=== PATIENT | female | born 1950 | race Caucasian/White ===

== ENCOUNTER 2018-05-17 12:08 | Emergency (ER) | payer BC ==
[2018-05-17 12:45] VITALS: BMI 28.1
--- NOTE | 2018-05-17 13:30 | PDOC ---
History of Present Illness - General History Source: Patient Exam Limitations: No Limitations - History of Present Illness Initial Comments: 05/17/18 15:33 The patient is a 68 year old female, with a significant past medical history of hypertension, diabetes, hypothyroid (on Synthroid), fibromyalgia (taking Cymbalta), and daily protonics, who presents to the emergency department with constipation and lower abdominal cramping for about 5 days. She reportedly use of several enemas and a couple of suppositories at home without any relief. She states she has lower abdominal cramping bilaterally with prominence to her suprapubic region. The patient denies chest pain, shortness of breath, headache and dizziness. The patient denies fever, chills, nausea, vomit, diarrhea, melena, or hematochezia. The patient denies dysuria, frequency, urgency and hematuria. Allergies: codeine Past surgical history: appendectomy, cholecystectomy, total hysterectomy, tonsillectomy Social history: denies toxic habits PCP - Dr. Plascencia <Teresita Rees - Last Filed: 05/17/18 15:33> <Faisal Mccoy - Last Filed: 05/17/18 19:07> - General Chief Complaint: Constipation Stated Complaint: CONSTIPATED Time Seen by Provider: 05/17/18 13:30 Past History <Teresita Rees - Last Filed: 05/17/18 15:33> - Suicide/Smoking/Psychosocial Hx Smoking History: Former smoker Have you smoked in the past 12 months: No Information on smoking cessation initiated: No Hx Alcohol Use: No Drug/Substance Use Hx: No <Faisal Mccoy - Last Filed: 05/17/18 19:07> - Past Medical History Allergies/Adverse Reactions: Allergies Allergy/AdvReac Type Severity Reaction Status Date / Time codeine AdvReac Verified 05/17/18 12:43 Review of Systems - Review of Systems Able to Perform ROS?: Yes Comments:: 05/17/18 15:34 CONSTITUTIONAL: No reported: Fever, Chills, Diaphoresis, Generalized Weakness, Malaise, Loss of Appetite HEENT: No reported: Rhinorrhea, Nasal Congestion, Throat Pain, Throat Swelling, Difficulty Swallowing, Mouth Swelling, Ear Pain, Eye Pain, Visual Changes CARDIOVASCULAR: No reported: Chest Pain, Syncope, Palpitations, Irregular Heart Rate, Lightheadedness, Peripheral Edema RESPIRATORY: No reported: Cough, Shortness of Breath, SOB with Exertion, Orthopnea, Wheezing , Stridor, Hemoptysis GASTROINTESTINAL: (+) lower abdominal pain and constipation. No reported: Abdominal Distension, Nausea, Vomiting, Diarrhea, Melena, Hematochezia GENITOURINARY: No reported: Dysuria, Frequency, Urgency, Hesitancy, Flank Pain, Genital Pain MUSCULOSKELETAL: No reported: Myalgia, Arthralgia, Joint Swelling, Back pain, Neck Pain SKIN: No reported: Rash, Itching, Pallor HEMEATOLOGIC/IMMUNOLOGIC: No reported: Easy Bleeding, Easy Bruising, Lymphadenopathy, Frequent infections ENDOCRINE: No reported: Unexplained Weight Gain, Unexplained Weight Loss, Heat Intolerance , Cold Intolerance NEUROLOGIC: No reported: Headache, Focal Weakness, Paresthesias, Vertigo, Lightheadedness, Unsteady Gait, Seizure, Mental Status Changes, Incontinence PSYCHIATRIC: No reported: Anxiety, Depression <Teresita Rees - Last Filed: 05/17/18 15:33> *Physical Exam - Vital Signs Last Vital Signs Temp Pulse Resp BP Pulse Ox 99.3 F 96 H 18 112/74 96 05/17/18 12:43 05/17/18 12:43 05/17/18 12:43 05/17/18 12:43 05/17/18 12:43 - Physical Exam Comments: 05/17/18 15:34 GENERAL: The patient is awake, alert, and fully oriented, Nontoxic - in no acute distress. HEAD: Normocephalic, atraumatic. EYES: extraocular movements intact, sclera anicteric, conjunctiva clear. ENT: Normal voice, Moist mucous membranes. NECK: Normal range of motion, supple LUNGS: Breath sounds equal, clear to auscultation bilaterally. No wheezes, no rhonchi, no rales. HEART: Regular rate and rhythm, without murmur, rub or gallop. ABDOMEN: (+) bilateral lower abdominal tenderness with increased tenderness to the suprapubic region. Soft, No guarding, no rebound.No CVA tenderness EXTREMITIES: Normal range of motion, no edema. No cyanosis. No erythema, or tenderness. NEUROLOGICAL: No facial assymetry, Normal speech, PSYCH: Normal mood, normal affect. SKIN: Warm, Dry, normal turgor, <Morenzi,Teresita - Last Filed: 05/17/18 15:33> - Vital Signs Last Vital Signs Temp Pulse Resp BP Pulse Ox 99.3 F 96 H 18 112/74 96 05/17/18 12:43 05/17/18 12:43 05/17/18 12:43 05/17/18 12:43 05/17/18 12:43 <Faisal Mccoy - Last Filed: 05/17/18 19:07> ED Treatment Course - LABORATORY CBC & Chemistry Diagram: 05/17/18 14:15 05/17/18 14:15 - ADDITIONAL ORDERS Additional order review: Laboratory Results 05/17/18 05/17/18 14:15 14:04 Sodium 138 Potassium 4.6 Chloride 102 Carbon Dioxide 31 Anion Gap 6 L BUN 13 Creatinine 0.8 Creat Clearance w eGFR > 60 Random Glucose 106 Calcium 9.5 Total Bilirubin 1.2 H AST 17 ALT 29 Alkaline Phosphatase 101 Total Protein 8.0 Albumin 4.4 Lipase 90 Urine Color [place] Urine Appearance Slcloudy Urine pH 5.0 Ur Specific [place] 1.031 Urine Protein 2+ H Urine Glucose (UA) Negative Urine Ketones Trace H Urine Blood Negative Urine Nitrite Negative Urine Bilirubin 2.0 Urine Urobilinogen 4.0 e.u/dl H Ur Leukocyte Esterase Negative Urine WBC (Auto) 4 Urine RBC (Auto) 16 Ur Epithelial Cells Rare Hyaline Casts 66 Urine Mucus Many 05/17/18 14:15 RBC 4.93 MCV 85.9 MCHC 32.6 RDW 14.5 MPV 7.3 L Neutrophils % 71.5 Lymphocytes % 19.2 Monocytes % 7.6 Eosinophils % 0.7 Basophils % 1.0 <Teresita Rees - Last Filed: 05/17/18 15:33> - LABORATORY CBC & Chemistry Diagram: 05/17/18 14:15 05/17/18 14:15 <Faisal Mccoy - Last Filed: 05/17/18 19:07> Medical Decision Making - Medical Decision Making 05/17/18 13:53 68y F presents with lower abd pain and decreased BMs for several days, multiple prior abd surgeries no f/c, n/v, bpr, urinary sypmtoms ddx includes obstruction, uti, kidney stone will obtain blood work, ct abd with po contrast will reassess 05/17/18 18:54 labs reviewed noted for mild leukocytosis pts CT performed, awaiting read 05/17/18 19:05 The patient's CAT scan was noted for mild stranding/haziness possibly suggestive of acute diverticulitis however the patient's symptoms do not suggest reticulitis as the patient has no focal tenderness, she has no fevers. Defer treating her with antibiotics at this point. Didn't take some laxatives will have the patient follow-up with cannot be this coming week. Return precautions were discussed <Faisal Mccoy - Last Filed: 05/17/18 19:07> *DC/Admit/Observation/Transfer - Attestations Scribe Attestion: 05/17/18 15:34 Documentation prepared by Teresita Rees, acting as medical office assistant for Faisal Mccoy MD <Teresita Rees - Last Filed: 05/17/18 15:33> - Discharge Dispostion Decision to Admit order: No <Faisal Mccoy - Last Filed: 05/17/18 19:07> Diagnosis at time of Disposition: Constipation Qualifiers: Constipation type: unspecified constipation type Qualified Code(s): K59.00 - Constipation, unspecified - Discharge Dispostion Disposition: HOME Condition at time of disposition: Improved - Referrals Referrals: Valerie Plascencia MD [Primary Care Provider] - - Patient Instructions Printed Discharge Instructions: DI for Constipation Additional Instructions: Return to the emergency department immediately with ANY new, persistent or worsening symptoms including worsening abdominal pain, fevers, chills, inability to tolerate oral intake or any other concerns. Please increase your water intake, increasing physical activity and increase her fiber intake You MUST call and follow up with your doctor tomorrow for further evaluation of your symptoms. Your emergency department visit is not complete without a followup with your doctor for reevaluation. Results were discussed with you. Please make sure your doctor reviews the results of your emergency evaluation. Print Language: SWISS
[2018-05-17 14:26] LABS: EOS % 0.7 % (0-4.5); HEMATOCRIT 42.3 % (32.4-45.2); HEMOGLOBIN 13.8 GM/dL (10.7-15.3); LYMPH % 19.2 % (8-40); MCHC 32.6 g/dl (32.0-36.0); MEAN CELL VOLUME 85.9 fl (80-96); MEAN PLT VOLUME 7.3 fl (7.5-11.1); MONO % 7.6 % (3.8-10.2); NEUT % 71.5 % (42.8-82.8); PLATELET COUNT 328 K/MM3 (134-434); RBC 4.93 M/mm3 (3.60-5.2); RDW 14.5 % (11.6-15.6)
[2018-05-17 14:40] LABS: URINE APPEARANCE SLCLOUDY; URINE COLOR AMBER; URINE GLUCOSE (UA) NEGATIVE (NEGATIVE); URINE KETONE TRACE (NEGATIVE); URINE LEUK ESTERASE NEGATIVE (NEGATIVE); URINE NITRITE NEGATIVE (NEGATIVE); URINE PROTEIN 2+ (NEGATIVE); URINE UROBILINOGEN 4.0 E.U/dl mg/dL (0.2-1.0)
[2018-05-17 14:50] LABS: EPI CELLS RARE /HPF (FEW); URINE HYALINE CAST 66 /lpf; URINE MUCUS MANY
[2018-05-17 14:59] LABS: ALBUMIN 4.4 g/dl (3.4-5.0); ALK PHOS 101 U/L (45-117); ANION GAP 6 MMOL/L (8-16); BILIRUBIN,TOTAL 1.2 mg/dL (0.2-1); BLOOD UREA NITROGEN 13 mg/dL (7-18); CALCIUM 9.5 mg/dL (8.5-10.1); CHLORIDE 102 mmol/L (98-107); CO2 31 mmol/L (21-32); CREATININE 0.8 mg/dL (0.55-1.3); GLUCOSE,RANDOM 106 mg/dL (74-106); LIPASE 90 U/L (73-393); POTASSIUM 4.6 mmol/L (3.5-5.1); SGOT/AST 17 U/L (15-37); SGPT/ALT 29 U/L (13-61); SODIUM 138 mmol/L (136-145)
[2018-05-17 19:54] VITALS: BP 131/83; PULSE 93; TEMP 98.8
== END 2018-05-17 19:34 | disposition home or self-care (01) ==
LOC: JER 12:08
DX: K59.00 Constipation, unspecified (principal); I10 Essential (primary) hypertension; E11.9 Type 2 diabetes mellitus without complications; E03.9 Hypothyroidism, unspecified; M79.7 Fibromyalgia
CPT/HCPCS: 36415; 74177-TC; 80053; 81003; 81015; 83690; 85025; 99283-25

== ENCOUNTER 2018-05-20 08:05 | Emergency (ER) | payer BC ==
--- NOTE | 2018-05-20 08:07 | PDOC ---
History of Present Illness - General Chief Complaint: Constipation Stated Complaint: constipation Time Seen by Provider: 05/20/18 08:06 History Source: Patient Exam Limitations: No Limitations - History of Present Illness Initial Comments: 05/20/18 08:34 Pt presents to the ED complaining of constipation for 5 days. Able to tolerate PO without vomiting. Denies fevers, urinary complaints or abdominal pain. Does complain of very mild and diffuse lower abdominal cramping that "feels like I still need to use the bathroom". Seen in the ED 3 days ago, had CT that was suggestive of diverticulitis, but since she had no fever or pain, was not given antibiotics. Took metamucil for the last three days. Had bowel movement this morning. Case discussed with Dr. Plascencia, who states that he sent the patient in because she had a slightly elevated WBC count on her last visit, and was complaining to him of mild abdominal pain. He wants to re-evaluate the patient for diverticulilitis. Past History - Past Medical History Allergies/Adverse Reactions: Allergies Allergy/AdvReac Type Severity Reaction Status Date / Time codeine AdvReac Verified 05/20/18 08:06 Home Medications: Ambulatory Orders Atorvastatin Ca [Lipitor] 10 mg PO DAILY 05/20/18 Duloxetine HCl [Cymbalta -] 60 mg PO DAILY 05/20/18 Levothyroxine Sodium [Synthroid] 88 mcg PO DAILY 05/20/18 Lisinopril 5 mg PO DAILY 05/20/18 Metoprolol Tartrate 12.5 mg PO DAILY 05/20/18 Ondansetron HCl [Zofran] 4 mg PO BID 05/20/18 Pantoprazole Sodium [Protonix] 0 mg PO DAILY 05/20/18 - Suicide/Smoking/Psychosocial Hx Smoking History: Former smoker Have you smoked in the past 12 months: No Hx Alcohol Use: No Drug/Substance Use Hx: No Review of Systems - Review of Systems Able to Perform ROS?: Yes Is the patient limited Bengali proficient: No Constitutional: No: Chills, Diaphoresis, Fever, Loss of Appetite, Malaise, Night Sweats, Weakness, Weight Stable, Unintentional Wgt. Loss, Unexplained wgt Loss, Other HEENTM: No: Eye Pain, Blurred Vision, Tearing, Recent change in vision, Double Vision, Cataracts, Ear Pain, Ocular Prothesis, Ear Discharge, Nose Pain, Nose Congestion, Tinnitus, Nose Bleeding, Hearing Loss, Throat Pain, Throat Swelling , Mouth Pain, Dental Problems, Difficulty Swallowing, Mouth Swelling, Other Respiratory: No: Cough, Orthopnea, Shortness of Breath, SOB with Exertion, SOB at Rest, Stridor, Wheezing, Productive cough, Hemoptysis, Other Cardiac (ROS): No: Chest Pain, Edema, Irregular Heart Rate, Lightheadedness, Palpitations, Syncope, Chest Tightness, Other ABD/GI: Yes: Constipated, Abdominal cramping. No: Abdominal Distended, Abd. Pain w/ defecation, Blood Streaked Bowels, Diarrhea, Difficulty Swallowing, Nausea, Poor Appetite, Poor Fluid Intake, Rectal Bleeding, Vomiting, Indigestion , Tarry Stools, Other : No: Burning, Dysuria, Discharge, Frequency, Flank Pain, Hematuria, Incontinence, Pain, Urgency, Lesions, Other All Other Systems: Reviewed and Negative *Physical Exam - Physical Exam General Appearance: Yes: Nourished, Appropriately Dressed HEENT: positive: Normal ENT Inspection, Normal Voice Respiratory/Chest: positive: Lungs Clear, Normal Breath Sounds Cardiovascular: positive: Regular Rhythm, Regular Rate, S1, S2 Gastrointestinal/Abdominal: positive: Flat (abdomen is soft, non tender, non distended with no guarding or rebound. ), Soft Musculoskeletal: positive: Normal Inspection Integumentary: positive: Normal Color, Dry, Warm Neurologic: positive: Fully Oriented, Alert, Normal Mood/Affect ED Treatment Course - LABORATORY CBC & Chemistry Diagram: 05/20/18 08:40 05/20/18 08:40 Medical Decision Making - Medical Decision Making 05/20/18 08:48 PT presents to the ED complaining of constipation which appears to have resolved this AM. Sent in by Dr. Plascencia due to concern about diverticulitis based on labs and CT from last visit. Patient does not have symptoms that are concerning for diverticulitis at this time. Tachycardia resolved. Will check labs and consider starting antibiotics if patient has an elevated WBC count. Abdominal xrays also ordered at the request of Dr. Plascencia. 05/20/18 08:52 05/20/18 09:32 Xrays are negative. LAbs are within normal limits. Will discharge home with follow up with PMD. *DC/Admit/Observation/Transfer Diagnosis at time of Disposition: Constipation Qualifiers: Constipation type: unspecified constipation type Qualified Code(s): K59.00 - Constipation, unspecified - Discharge Dispostion Condition at time of disposition: Good Decision to Admit order: No - Referrals Referrals: Valerie Plascencia MD [Primary Care Provider] - - Patient Instructions Printed Discharge Instructions: DI for Constipation Additional Instructions: return to the ED for worsening pain, fever, nausea or vomiting, other new or worsening symptoms. your blood sugar was high today. Please make sure that you call Dr. Plascencia for follow up tomorrow and avoid concentrated sweets ( cake , candy, cookies and sweetened drinks) until you see Dr. Plascencia. - Post Discharge Activity
[2018-05-20 08:13] VITALS: TEMP 98.6; BMI 28.3
[2018-05-20 08:33] VITALS: BP 140/87; PULSE 89
[2018-05-20 08:46] LABS: BASO % 0.3 % (0-2.0); EOS % 1.1 % (0-4.5); HEMATOCRIT 38.1 % (32.4-45.2); HEMOGLOBIN 12.4 GM/dl (10.7-15.3); LYMPH % 16.3 % (8-40); MCH 28.5 pg (25.7-33.7); MCHC 32.7 g/dl (32.0-36.0); MEAN CELL VOLUME 87.1 fl (80-96); MEAN PLT VOLUME 7.4 fl (7.5-11.1); MONO % 8.8 % (3.8-10.2); NEUT % 73.5 % (42.8-82.8); PLATELET COUNT 361 K/MM3 (134-434); RBC 4.37 M/mm3 (3.60-5.2); RDW 13.1 % (11.6-15.6); WHITE BLOOD COUNT 8.4 K/mm3 (4.0-10.8)
[2018-05-20 08:58] LABS: ALK PHOS 78 U/L (32-92); ANION GAP 7 MMOL/L (8-16); BILIRUBIN,TOTAL 0.9 mg/dl (0.2-1.0); BLOOD UREA NITROGEN 13 mg/dl (7-18); CALCIUM 8.7 mg/dl (8.4-10.2); CHLORIDE 103 mmol/L (98-107); CO2 25 mmol/L (22-28); CREATININE 0.7 mg/dl (0.6-1.3); GLUCOSE,RANDOM 237 mg/dl (74-106); POTASSIUM 4.1 mmol/L (3.5-5.1); SGOT/AST 19 U/L (10-42); SGPT/ALT 21 U/L (10-40); SODIUM 135 mmol/L (136-145); TOT PROT 6.8 g/dl (6.4-8.3)
== END 2018-05-20 09:40 | disposition home or self-care (01) ==
LOC: SUPCPDRO 08:05 → FER 08:05
DX: K59.00 Constipation, unspecified (principal)
CPT/HCPCS: 36415; 71046-TC-FY; 74019-TC-FY; 80053; 85025; 99282-25